=== PATIENT | female | born 1950 | race Caucasian/White ===

== ENCOUNTER 2024-11-02 11:15 | Outpatient (RCR) | payer MEDICARE, BC, SELFPAY | END 2024-12-10 13:45 | disposition home or self-care (01) | PROVIDERS: PCP Physician Assistant Medical; Visit Provider Physician Assistant Medical | DX: M25.551 Pain in right hip (principal); R29.898 Other symptoms and signs involving the musculoskeletal system; M16.11 Unilateral primary osteoarthritis, right hip; M25.561 Pain in right knee; M25.651 Stiffness of right hip, not elsewhere classified; Z51.89 Encounter for other specified aftercare | CPT/HCPCS: 97110; 97112; 97161 ==